=== PATIENT | female | born 1990 | race American Indian/Alaskan Native ===

== ENCOUNTER 2017-02-02 18:40 | Emergency (ER) | payer SELFPAY ==
[2017-02-02 19:00] VITALS: BP 143/86
--- NOTE | 2017-02-02 19:12 | Emergency Department Report ---
Chief Complaint: Headache Stated Complaint: HEADACHE/EAR PAIN/VOMITING Time Seen by Provider: 02/02/17 19:03 - HPI History of Present Illness: Pt c/o vomiting, R ear pain and headache x 2 days. PT states she has a hx of CVA and migraine. - ROS Review of Systems: + headache + vomiting + ear pain - Exam Vital Signs: Vital Signs 02/02/17 18:53 Temperature 98.6 F Pulse Rate 82 Respiratory 18 Rate Blood Pressure 143/86 O2 Sat by Pulse 100 Oximetry Physical Exam: Pt is alert. facial droop noted. per chart, pt has hx of same. abd is obese R tm pearly hamlin, landmarks visualized MSE screening note: Focused history and physical exam performed. Due to findings the following was ordered: labs, ct ED Disposition for MSE Condition: Stable
--- NOTE | 2017-02-03 13:59 | ED Elopement Review ---
ED Pt Elopement review - Call Back decision Pt Call Back Decision: No action required
== END 2017-02-03 01:35 | disposition left against medical advice (07) ==
LOC: ED 18:40
DX: R11.10 Vomiting, unspecified (principal); R51 Headache; Z53.21 Procedure and treatment not carried out due to patient leaving prior to being seen by health care provider